=== PATIENT | male | born 1950 | race Caucasian/White ===

== ENCOUNTER 2020-06-24 15:12 | Outpatient (REF) | payer OTHER, SELFPAY ==
[2020-06-24 22:32] LABS: ALT 27 U/L (16-63); AST 18 U/L (15-37); Calculated LDL 153 mg/dL (<100); Cholesterol 225 mg/dL (<200); HDL Cholesterol 38 mg/dL (40-60); Triglyceride 172 mg/dL (<150)
[2020-06-25 18:54] LABS: PSA, Diagnostic 4.6 ng/mL (0.0-4.5)
== END 2020-06-24 15:32 ==
LOC: NCHCN 15:12
PROVIDERS: PCP Internal Medicine; Visit Provider Nurse Practitioner Family
DX: N40.0 Benign prostatic hyperplasia without lower urinary tract symptoms (principal); E78.5 Hyperlipidemia, unspecified
CPT/HCPCS: 80061; 84153; 84450; 84460

== ENCOUNTER 2021-06-30 09:36 | Outpatient (REF) | payer MEDICARE, SELFPAY ==
[2021-06-30 14:54] LABS: HGB 16.7 g/dL (13.5-17.5); MCH 28.7 pg (27.0-33.0); MCHC 32.7 % (32.0-36.0); MCV 87.8 fL (80-95); MPV 10.3 fL (8.0-11.0); Platelet Count 231 10^3/uL (130-400); RBC 5.81 10^6/uL (4.36-5.78); RDW 12.3 % (11.8-14.1); RDW-SD 39.8 fL; WBC 5.69 10^3/uL (4.4-10.8)
[2021-06-30 15:08] LABS: ALT 24 U/L (16-63); AST 15 U/L (15-37); Albumin 4.3 g/dL (3.4-5.0); Alkaline Phosphatase 78 U/L (46-116); Anion Gap 7.1 mmol/L (3-11); BUN 20 mg/dL (7-18); Bilirubin, Total 0.7 mg/dL (0.2-1.0); CO2 29.9 mmol/L (21.0-32.0); Calcium 8.9 mg/dL (8.5-10.1); Calculated LDL 169 mg/dL (<100); Chloride 104 mmol/L (98-107); Cholesterol 245 mg/dL (<200); Glucose 82 mg/dL (74-106); HDL Cholesterol 38 mg/dL (40-60); Potassium 4.8 mmol/L (3.5-5.1); Sodium 141 mmol/L (136-145); Total Protein 7.6 g/dL (6.4-8.2); Triglyceride 193 mg/dL (<150)
== END 2021-06-30 09:37 | disposition home or self-care (01) ==
LOC: NCHCN 09:36
PROVIDERS: PCP Internal Medicine; Visit Provider Family Medicine
DX: E78.5 Hyperlipidemia, unspecified (principal); R03.0 Elevated blood-pressure reading, without diagnosis of hypertension; N40.0 Benign prostatic hyperplasia without lower urinary tract symptoms; Z00.00 Encounter for general adult medical examination without abnormal findings; G43.909 Migraine, unspecified, not intractable, without status migrainosus
CPT/HCPCS: 80053; 80061; 85027

== ENCOUNTER 2023-03-30 18:54 | Outpatient (REF) | payer MEDICARE, SELFPAY ==
[2023-03-30 18:37] LABS: ALT 26 U/L (16-63); AST 17 U/L (15-37); Albumin 4.4 g/dL (3.4-5.0); Alkaline Phosphatase 74 U/L (46-116); Anion Gap 8.8 mmol/L (3-11); BUN 18 mg/dL (7-18); Bilirubin, Total 0.8 mg/dL (0.2-1.0); CO2 27.2 mmol/L (21.0-32.0); CREATININE 1.2 mg/dL (0.70-1.30); Calculated LDL 155 mg/dL (<100); Chloride 104 mmol/L (98-107); Cholesterol 228 mg/dL (<200); Estimated GFR 64.25 (mL/min/1.73m2); Glucose 91 mg/dL (74-106); HDL Cholesterol 45 mg/dL (40-60); Potassium 4.6 mmol/L (3.5-5.1); Sodium 140 mmol/L (136-145); Total Protein 7.5 g/dL (6.4-8.2); Triglyceride 141 mg/dL (<150)
[2023-03-31 19:35] LABS: PSA, Screening 5.5 ng/mL (<=6.5)
== END 2023-03-30 18:55 | disposition home or self-care (01) ==
LOC: NCHCN 18:54
PROVIDERS: PCP Internal Medicine; Visit Provider Nurse Practitioner Family
DX: E78.5 Hyperlipidemia, unspecified (principal); R59.1 Generalized enlarged lymph nodes; I10 Essential (primary) hypertension; G43.909 Migraine, unspecified, not intractable, without status migrainosus; N40.0 Benign prostatic hyperplasia without lower urinary tract symptoms; Z00.00 Encounter for general adult medical examination without abnormal findings
CPT/HCPCS: 80053; 80061; 84153

== ENCOUNTER 2023-06-29 10:25 | Outpatient (REF) | payer MEDICARE, SELFPAY ==
[2023-06-29 14:31] LABS: ALT 31 U/L (16-63); AST 19 U/L (15-37); Albumin 4.1 g/dL (3.4-5.0); Alkaline Phosphatase 78 U/L (46-116); Anion Gap 9.4 mmol/L (3-11); BUN 19 mg/dL (7-18); Bilirubin, Total 0.6 mg/dL (0.2-1.0); CO2 27.6 mmol/L (21.0-32.0); Calcium 9.1 mg/dL (8.5-10.1); Calculated LDL 147 mg/dL (<100); Chloride 104 mmol/L (98-107); Cholesterol 215 mg/dL (<200); Estimated GFR 79.97 (mL/min/1.73m2); Glucose 84 mg/dL (74-106); HDL Cholesterol 38 mg/dL (40-60); Potassium 4.1 mmol/L (3.5-5.1); Sodium 141 mmol/L (136-145); Total Protein 7.1 g/dL (6.4-8.2); Triglyceride 152 mg/dL (<150)
== END 2023-06-29 10:26 | disposition home or self-care (01) ==
LOC: NCHCN 10:25
PROVIDERS: PCP Internal Medicine; Visit Provider Nurse Practitioner Family
DX: E78.5 Hyperlipidemia, unspecified (principal); K30 Functional dyspepsia; I10 Essential (primary) hypertension; N40.0 Benign prostatic hyperplasia without lower urinary tract symptoms; R59.1 Generalized enlarged lymph nodes; G43.909 Migraine, unspecified, not intractable, without status migrainosus
CPT/HCPCS: 80053; 80061

== ENCOUNTER 2024-07-31 13:20 | Outpatient (REF) | payer MEDICARE, SELFPAY ==
--- OUTSIDE RECORDS SUMMARY | 2024-07-31 13:22 | XMS_ITS | Encounter Summary ---
Author Organization [facility] Address [address] [place] [address] Care Team Providers Care Refinery Operator Crude Unit Name Role Phone Unavailable Primary Care Provider Unavailabl e Encounter Details Date Type Department Care Team (Late st Contact Info) Description 03/30/2023 Lab Requisition [facility] Pathology & Laboratory Medicine - [facility] [address] [place] [address] Outr Resulting Lab, Provider Social History Tobacco Use Types Packs/Day Years Used Date Smoking Tobacco: Never Assessed Interpersonal Safety Answer Date Record ed Physically Hurt Never 07/28/2020 Verbally Threaten Not on file 07/28/2020 Sex and Gender Information Value Date Recorded Sex Assigned at Not on file Legal Sex Male 10:34 EDT Gender Identity Not on file Sexual Orientation Not on file documented as of this encounter Plan of Treatment Not on file documented as of this encounter Procedures Procedure Name Priority Date/Time Associated Diagnosis Comments PSA TOTAL, DIAGNOSTIC Routine 03/30/2023 9:15 EDT documented in this encounter Results * PSA TOTAL, DIAGNOSTIC (03/30/2023 9:15 EDT) PSA 5.5 <=6.5 ng/mL 03/31/2023 19:30 EDT [facility] Blood VENOUS BLOOD / Unknown 03/30/2023 9:15 EDT 03/31/2023 17:37 EDT Narrative [facility] - 03/31/2023 19:30 EDT NOTE: Serum PSA concentration should not be interpreted as absolute evidence for the presence or absence of malignant disease. Assayed on Siemens ADVIA Centaur XPT using chemiluminescent technology.??Values obtained by using different assay methods cannot be used interchangeably. us Provider Outr Resulting Lab CHEMISTRY & BLOOD GA S ORDERABLES Final Result [facility] [address] [place] [address] documented in this encounter Visit Diagnoses Not on filedocumented in this encounter
--- OUTSIDE RECORDS SUMMARY | 2024-07-31 13:22 | XMS_ITS | Clinical Summary ---
Author Organization [facility] Address [address] [place] [id number] Care Team Providers Care Director Of Career Resources Name Role Phone Unavailable Primary Care Provider Unavailabl e Social History Tobacco Use Types Packs/Day Years Used Date Smoking Tobacco: Never Assessed Interpersonal Safety Answer Date Record ed Physically Hurt Never 07/28/2020 Verbally Threaten Not on file 07/28/2020 Sex and Gender Information Value Date Recorded Sex Assigned at Not on file Legal Sex Male 10:34 EDT Gender Identity Not on file Sexual Orientation Not on file Plan of Treatment Health Maintenance Due Date Last Done Comments Hepatitis C Screen 1950 Fall Risk Screening 02/21/2016 COVID-19 Vaccine ( season) 2024 RSV Immunization ( o r 60+ Years) (1 - 1-dose 75+ series) 2026
--- OUTSIDE RECORDS SUMMARY | 2024-07-31 13:22 | XMS_ITS | Encounter Summary ---
Author Organization [facility] Address [address] [place] [address] Care Team Providers Care Mat Man Name Role Phone Unavailable Primary Care Provider Unavailabl e Encounter Details Date Type Department Care Team (Late st Contact Info) Description 06/25/2020 Lab Requisition [facility] Pathology & Laboratory Medicine - [facility] [address] [place] [address] Outr Resulting Lab, Provider Social History Tobacco Use Types Packs/Day Years Used Date Smoking Tobacco: Never Assessed Sex and Gender Information Value Date Recorded Sex Assigned at Not on file Legal Sex Male 10:34 EDT Gender Identity Not on file Sexual Orientation Not on file documented as of this encounter Plan of Treatment Not on file documented as of this encounter Procedures Procedure Name Priority Date/Time Associated Diagnosis Comments PSA TOTAL, DIAGNOSTIC Routine 06/24/2020 12:00 EDT documented in this encounter Results * (ABNORMAL) PSA TOTAL, DIAGNOSTIC (06/24/2020 12:00 EDT) PSA 4.6(H) 0.0 - 4.5 ng/mL 06/25/2020 18:49 EDT [facility] Blood VENOUS BLOOD / Unknown 06/24/2020 12:00 EDT 06/25/2020 17:15 EDT Narrative [facility] - 06/25/2020 18:49 EDT NOTE: Serum PSA concentration should not be interpreted as absolute evidence for the presence or absence of malignant disease. Assayed on Siemens ADVIA Centaur XPT using chemiluminescent technology.??Values obtained by using different assay methods cannot be used interchangeably. us Provider Outr Resulting Lab CHEMISTRY & BLOOD GA S ORDERABLES Final Result [facility] [address] [place] [address] documented in this encounter Visit Diagnoses Not on filedocumented in this encounter
--- OUTSIDE RECORDS SUMMARY | 2024-07-31 13:22 | XMS_ITS | Referral Summary ---
Author Organization [facility] Address [address] [place] [id number] Care Team Providers Care Mexican Food Maker Hand Name Role Phone Unavailable Primary Care Provider [...] Orientation Not on file Plan of Treatment Not on file
[2024-07-31 15:32] LABS: ALT 27 U/L (16-63); AST 17 U/L (15-37); Alkaline Phosphatase 76 U/L (46-116); Anion Gap 8.7 mmol/L (3-11); BUN 17 mg/dL (7-18); Bilirubin, Total 0.83 mg/dL (0.2-1.0); CO2 27.3 mmol/L (21.0-32.0); CREATININE 1.2 mg/dL (0.70-1.30); Calculated LDL 145 mg/dL (<100); Chloride 103 mmol/L (98-107); Cholesterol 223 mg/dL (<200); Estimated GFR 63.85 (mL/min/1.73m2); Glucose 96 mg/dL (74-106); HDL Cholesterol 44 mg/dL (40-60); Potassium 4.7 mmol/L (3.5-5.1); Sodium 139 mmol/L (136-145); Total Protein 7.6 g/dL (6.4-8.2); Triglyceride 172 mg/dL (<150)
[2024-07-31 15:53] LABS: COMMENT (LAB VIEW ONLY) 129.16 mg/dL; Microalb ug/mg Crea 5.3 ug/mg Cr
[2024-07-31 23:08] LABS: PSA, Diagnostic 4.8 ng/mL (<=6.5)
== END 2024-07-31 13:21 | disposition home or self-care (01) ==
LOC: NCHCN 13:20
PROVIDERS: PCP Internal Medicine; Visit Provider Nurse Practitioner Family
DX: I10 Essential (primary) hypertension (principal); N40.0 Benign prostatic hyperplasia without lower urinary tract symptoms
CPT/HCPCS: 80053; 80061; 82043; 82570; 84153

== ENCOUNTER 2025-07-29 10:05 | Outpatient (REF) | payer MEDICARE, SELFPAY ==
[2025-07-29 16:18] LABS: Glucose Negative (Negative)
[2025-07-29 16:34] LABS: ALT 21 U/L (10-49); AST 21 U/L (<34); Albumin 4.3 g/dL (3.2-5.0); Alkaline Phosphatase 79 U/L (46-116); Anion Gap 7.8 mmol/L (3-11); BUN 21 mg/dL (9-23); Bilirubin, Total 0.70 mg/dL (0.2-1.2); CO2 27.2 mmol/L (20.0-31.0); Calcium 9.3 mg/dL (8.3-10.6); Chloride 106 mmol/L (98-107); Cholesterol 233 mg/dL (<200); Glucose 92 mg/dL (74-106); HDL Cholesterol 42 mg/dL (>40); Potassium 4.2 mmol/L (3.5-5.1); Sodium 141 mmol/L (136-145); Total Protein 6.8 g/dL (5.7-8.2)
[2025-07-29 23:11] LABS: PSA, Diagnostic 5.2 ng/mL (<=6.5)
== END 2025-07-29 10:06 | disposition home or self-care (01) ==
LOC: NCHCN 10:05
PROVIDERS: PCP Internal Medicine; Visit Provider Nurse Practitioner Family
DX: N40.0 Benign prostatic hyperplasia without lower urinary tract symptoms (principal); E78.5 Hyperlipidemia, unspecified; I10 Essential (primary) hypertension
CPT/HCPCS: 80053; 80061; 81003; 82043; 82570; 84153